=== PATIENT | female | born 1990 | race Caucasian/White ===

== ENCOUNTER 2018-03-27 21:39 | Emergency (ER) | payer MEDICAID, OTHER ==
[~2018-03-27] VITALS: Ht 160 cm; Wt 85.5 kg
[2018-03-27 22:04] VITALS: BP 129/75
[2018-03-27] MEDS ORDERED: AMOX125T PO (22:09)
[2018-03-27] MEDS ORDERED: PSEU30TA31 PO (22:09)
[2018-03-27] MEDS ORDERED: IBUP-2070 PO (22:09)
[2018-03-27] MEDS ORDERED: HYDROCODONE/ACETAMINOPHEN 10-325 MG TABLET PO ONE (22:45)
== END 2018-03-27 23:13 | disposition home or self-care (01) ==
LOC: EMS 21:40
DX: H66.93 Otitis media, unspecified, bilateral (principal); Z87.891 Personal history of nicotine dependence; Z79.899 Other long term (current) drug therapy